=== PATIENT | male | born 1955 | race Native Hawaiian/Other Pacific Islander ===

== ENCOUNTER 2017-12-30 09:39 | Emergency (ER) | payer OTHER ==
[~2017-12-30] VITALS: Ht 170.2 cm; Wt 117.5 kg
[2017-12-30 09:40] VITALS: BP 134/83; TEMP 98.1
== END 2017-12-30 12:30 | disposition home or self-care (01) ==
LOC: ED 09:39
DX: S70.02XA Contusion of left hip, initial encounter (principal); W01.0XXA Fall on same level from slipping, tripping and stumbling without subsequent striking against object, initial encounter; Y93.89 Activity, other specified; Y92.511 Restaurant or cafe as the place of occurrence of the external cause; Y99.8 Other external cause status; S80.211A Abrasion, right knee, initial encounter
CPT/HCPCS: 99283